=== PATIENT | male | born 1990 | race African-American/Black ===

== ENCOUNTER 2023-01-07 16:38 | Emergency (ER) | payer BC, OTHER ==
[~2023-01-07] VITALS: Ht 170.2 cm; Wt 85.0 kg
[~2023-01-07 16:38] MED LIST: NO HOME MEDS
[2023-01-07 17:07] VITALS: BP 142/75
[2023-01-07] MEDS ORDERED: NAPR-56 PO (18:34)
[2023-01-07] MEDS ORDERED: SULF1TAB49 PO (18:34)
[2023-01-07] MEDS ORDERED: sulfamethoxazole/trimethoprim DS (800/160mg) tablet PO ONE (18:35)
== END 2023-01-07 19:11 | disposition home or self-care (01) ==
LOC: ER 16:39
DX: L02.01 Cutaneous abscess of face (principal); Z56.0 Unemployment, unspecified; Z72.89 Other problems related to lifestyle; Z79.899 Other long term (current) drug therapy
CPT/HCPCS: 10060; 99283

== ENCOUNTER 2023-02-05 18:06 | Emergency (ER) | payer MEDICAID, OTHER ==
[~2023-02-05 18:06] MED LIST changes: +NAPR-56 PO
== END 2023-02-05 19:38 | disposition left against medical advice (07) ==
LOC: ER 18:06
DX: M79.89 Other specified soft tissue disorders (principal); Z53.21 Procedure and treatment not carried out due to patient leaving prior to being seen by health care provider